=== PATIENT | male | born 1930 | race Caucasian/White ===

== ENCOUNTER 2016-09-14 12:38 | Emergency (ER) | payer MEDICARE ==
[2016-09-14] MEDS ORDERED: CLINDAMYCIN 150 MG CAP PO ONE (12:45)
--- NOTE | 2016-09-14 12:54 | Emergency Department Record ---
History of Present Illness - General Stated complaint: INFECTED FINGER Time Seen by Provider: 09/14/16 12:45 Source: Patient, Family Mode of Arrival: Ambulatory Limitations: No limitations - History of Present Illness Initial comments: 85 yo male presents with index finger redness, mild swelling and pain. The area started with a small scab or bump. He has full ROM but it is sore. NO trauma. No streaking up the arm. No fever, vomiting, diarrhea. No other rash , redness or skin changes. MD Complaint: Joint pain -: Days(s) (1) Location: Right, Other (index finger) Radiation: Proximal Quality: Aching Consistency: Constant Improves with: Nothing Worsens with: Palpation - Related Data Home Medications Medication Instructions Recorded Confirmed Last Taken Cholecalciferol (Vitamin D3) 2,000 unit PO DAILY 07/08/13 09/14/16 09/14/16 [Vitamin D3] Lisinopril [Prinivil] 20 mg PO DAILY 07/08/13 09/14/16 09/14/16 Albuterol Sulfate [Proair Hfa] 2 puff IH BID PRN 09/25/14 09/14/16 09/14/16 Atorvastatin Calcium 20 mg PO DAILY 02/26/15 09/14/16 09/14/16 Furosemide [Lasix] 30 mg PO DAILY 02/26/15 09/14/16 09/14/16 Metoprolol Tartrate 25 mg PO BID 02/26/15 09/14/16 09/14/16 Albuterol Sulfate 2.5 mg IH 3-4XD PRN ml 05/10/15 09/14/16 09/14/16 Eye Health & Lutein 1 tab PO DAILY 07/09/15 09/14/16 09/14/16 Ferrous Sulfate [Iron] 325 mg PO DAILY 07/09/15 09/14/16 09/14/16 Omeprazole [Prilosec] 20 mg PO DAILY 07/09/15 09/14/16 09/14/16 Previous Rx's Medication Instructions Recorded Clindamycin HCl 300 mg PO TID #21 capsule 09/14/16 Allergies Allergy/AdvReac Type Severity Reaction Status Date / Time No Known Drug Allergies Allergy Verified 09/14/16 12:51 Review of Systems Constitutional: Denies: Chills, Fever, Malaise, Weakness Eyes: Denies: Eye discharge ENT: Denies: Congestion, Throat pain Respiratory: Denies: Cough Cardiovascular: Denies: Chest pain, Palpitations, Syncope Endocrine: Denies: Fatigue Gastrointestinal: Denies: Abdominal pain, Diarrhea, Nausea, Vomiting Genitourinary: Denies: Dysuria, Frequency, Hematuria Musculoskeletal: Reports: As per HPI, Arthralgia Skin: Reports: As per HPI, Change in color, Rash Neurological: Denies: Confusion, Headache Psychiatric: Denies: Anxiety Hematological/Lymphatic: Denies: Blood Clots, Easy bleeding, Easy bruising, Swollen glands Past Medical History - SOCIAL HISTORY Smoking Status: Former smoker - RESPIRATORY Hx Respiratory Disorders: Yes Hx Asthma: Yes Hx COPD: Yes Comment:: wears o2 at home at night - CARDIOVASCULAR Hx Cardio Disorders: Yes Hx CHF: Yes Hx Hypertension: Yes Comment:: hypercholesterolemia - NEURO Hx Neuro Disorders: No - GI Hx GI Disorders: No - Hx Genitourinary Disorders: No - ENDOCRINE Hx Endocrine Disorders: No - MUSCULOSKELETAL Hx Musculoskeletal Disorders: No - PSYCH Hx Psych Problems: No - HEMATOLOGY/ONCOLOGY Hx Hematology/Oncology Disorders: No Family Medical History Hx Diabetes: Mother Hx Heart Disease: Father *Heart Comment: 28 Physical Exam - General General Appearance: Alert, Oriented x3, Cooperative, No acute distress Limitations: No limitations - Head Head exam: Normal inspection - Eye Eye exam: Normal appearance - ENT ENT exam: Normal exam Ear exam: Normal external inspection Nasal Exam: Normal inspection Mouth exam: Normal external inspection - Neck Neck exam: Normal inspection - Cardiovascular Cardiovascular Exam: Regular rate, Normal rhythm, Normal heart sounds Peripheral Pulses: 2+: Radial (R) - Rectal Rectal exam: Deferred - exam: Deferred - Extremities Extremities exam: Full ROM, Normal capillary refill, Tenderness. negative: Normal inspection Image of Hand: 1 - 1mm scab with about 1cm mild swelling with feeling of slight fluctuance 2 - erythema, full ROM, minimal to mild swelling, no drainage. - Neurological Neurological exam: Alert, Oriented X3 - Psychiatric Psychiatric exam: Normal affect, Normal mood. negative: Agitated, Anxious - Skin Skin exam: Erythema Course - Reevaluation(s) Reevaluation #1: I offered I and D of the 1cm swollen area with palpable fluctuance that could be a small abscess where the scab is located. He agreed PROCEDURE I and D Betadine prep 2mm stab incision slight pus drainage then blood tolerated well Clindamycin given in the ED We discussed home care with warm soaks and reasons to return if worse Rx provided for clindamycin 09/14/16 12:56 Disposition Disposition: Discharge Clinical Impression: Abscess of finger of right hand, Cellulitis of finger of right hand Disposition: Home, Self-Care Condition: (1) Good Instructions: Cellulitis (ED) Additional Instructions: Soak the hand in warm (not hot) soapy water for 15-20 minutes twice daily The the antibiotic every 8 hours Return if increased redness or swelling or any new concerns Prescriptions: Clindamycin HCl 300 mg PO TID #21 capsule Forms: Patient Portal Access Time of Disposition: 12:58 Quality - Quality Measures Quality Measures: N/A - Blood Pressure Screening View Details: Yes Blood Pressure Classification: Pre-Hypertensive BP Reading Systolic Measurement: 128 Diastolic Measurement: 70 Screening for High Blood Pressure: < Normal BP, F/U Not Required > [G8783] Normal BP Follow-up Interventions: No follow-up required
== END 2016-09-14 13:29 | disposition home or self-care (01) ==
LOC: ER 12:38
DX: L02.511 Cutaneous abscess of right hand (principal); L03.011 Cellulitis of right finger; I10 Essential (primary) hypertension; Z87.891 Personal history of nicotine dependence
CPT/HCPCS: 26010; 99284